=== PATIENT | female | born 1980 | race Caucasian/White ===

== ENCOUNTER 2016-08-21 11:18 | Day surgery (SDC) | payer MEDICARE, OTHER ==
[2016-08-19 11:52] LABS: WBC (NOT ORDERED) (RFLEX) 0 (0-5)
[2016-08-19 12:24] LABS: BUN (BLOOD UREA NITROGEN) 21 MG/DL (6-23); CALCIUM, SERUM 8.4 MG/DL (8.5-10.4); CHLORIDE, SERUM 105 MMOL/L (96-112); CO2 (CARBON DIOXIDE) 29 MMOL/L (24-34); CREATININE 1.13 MG/DL (0.55-1.02); GFR AFRICAN AMERICAN 73 ML/MIN (>=60); GFR NON AFRICAN AMERICAN 63 ML/MIN (>=60); GLUCOSE, SERUM 78 MG/DL (60-99); POTASSIUM, SERUM 4.4 MMOL/L (3.5-5.3); SODIUM, SERUM 143 MMOL/L (135-148)
[2016-08-19 14:10] LABS: ASCORBIC ACID (UR NOT ORDER) NEG (NEG); BILIRUBIN, URINE NEGATIVE (NEG); KETONE, URINE NEGATIVE (NEG); LEUKOCYTE ESTERASE(NOT OR NEG (NEG)
--- NOTE | ~2016-08-21 | CN ---
Consultation Report [facility] [address] [place]. [address] NAME: MYNOR BOURGEOIS : 84 STATUS : [facility] PAT#: [id number] AGE: 36 ADM/REG DATE : 08/21/16 MR#: [id number] REPORT SERV DATE: 08/21/16 DICTATED BY: SURINDER CLAIRE DATE: 08/21/16 REPORT STATUS : Draft TRANSCRIBED BY: MODL DATE: 08/21/16 DATE OF CONSULTATION: 08/21/2016 REASON FOR CONSULT: Unable to arouse. CHIEF COMPLAINT: I am here to have the procedure by Dr. Nation. HISTORY OF PRESENT ILLNESS: A 36-year-old white female with a history of type 1 diabetes on Levemir and Novolin along with hypertension, benzodiazepine use, presented today for an elective procedure by Dr. Nation for a cystoscopy with bilateral ureteroscopy and possible stone manipulation. I was called to the bedside by Dr. Nation as the patient was a difficult to arouse even by Anesthesia. The patient had apparently walked into the hospital for this elective procedure, was doing fine and then at some point in time was hypersomnolent. A serum tox screen was obtained. The only time Anesthesia was able to arouse the patient was after placing an IJ. The patient's vitals were unremarkable. When I had walked by her room, she had her arms behind her head. No seizure activity, but there is obvious snoring. After deep sternal manipulation, the patient was arousable and was able to give me a decent history. She states that she had been up for the past couple of days, nervous about the procedure, and did not get much sleep. However, according to the medical staff, she may have taken an extra dose or two of benzodiazepine. The patient denies any chest pain or shortness of breath. Denies any seizure activity, but does say she has had a questionable seizure in December, but not on any seizure medications at home. REVIEW OF SYSTEMS: As per HPI. Otherwise, 10-point systems are reviewed and are negative. PAST MEDICAL HISTORY: Type 1 diabetes, currently on insulin; hypertension; questionable seizures; hematuria; may be some possible schizophrenia; ADHD; and anxiety disorder. PAST SURGICAL HISTORY: Appendectomy, cholecystectomy, three C sections, partial nephrectomy with persistent hematuria, hysterectomy, stents in both kidneys, tonsillectomy. SOCIAL HISTORY: History of smoking. Possible illegal drug use. She was incarcerated at some point for seven years for assaulting a prostitute. 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 FAMILY HISTORY: Positive for coronary artery disease and hypertension. MEDICATIONS: Include amlodipine, carvedilol, Klonopin, gabapentin, insulin, Levemir insulin, Novolin R, lisinopril, Latuda, and Percocet p.r.n. PHYSICAL EXAMINATION: VITAL SIGNS: Within normal limits. GENERAL: The patient is cooperative. She is alert and orient x3 after waking up from a deep sternal rub. She remains awake and able to provide a good history now. Generally, she is Consultation Report [address] [place]. [address] NAME: MYNOR BOURGEOIS : 84 STATUS : [facility] PAT#: [id number] AGE: 36 ADM/REG DATE : 08/21/16 MR#: [id number] REPORT SERV DATE: 08/21/16 DICTATED BY: SURINDER CLAIRE DATE: 08/21/16 REPORT STATUS : Draft TRANSCRIBED BY: JOSE DATE: 08/21/16 no acute distress. Alert and oriented x3. Very pleasant. HEENT: Normocephalic and atraumatic head. Poor dentition. CARDIAC: Regular rhythm. No murmurs, rubs, or gallops. PULMONARY: Clear to auscultation bilaterally. ABDOMEN: Soft, nontender, nondistended. Positive bowel sounds. EXTREMITIES: No clubbing, cyanosis, or edema. SKIN: Warm and dry. There are several tattoos. PSYCHIATRIC: The patient is cooperative. Mood is appropriate. NEURO: No focal deficits. LABS: Show an unremarkable BMP except for a creatinine of 1.13. UA is unremarkable. Glucose is 244. Serum drug screen is negative for toxicology. IMPRESSION: 1. Hypersomnolence, likely secondary to over medication, possibly from benzodiazepine versus lack of sleep, now resolved. 2. Insulin-dependent diabetes. 3. Chronic benzodiazepine use. 4. Attention deficit hyperactivity disorder. PLAN: Agree with Dr. Nation to hold off surgery until the patient is more compliant with medications. No need for inpatient hospitalization. Okay to be discharged from the Hospital Service from the preop area. WING/JOSE Surinder Claire MD / [id number] CC: MD YUVAL Lay ANGELA LOUISE
[~2016-08-21 11:18] MED LIST: ADDERALL30 MG PO; COREGCR10 PO; INSNOVR SC; KLONO1 PO; LATUDA40 MG PO; LEVEMFLXPN SC; NEUR600 PO; NORV5 PO; PCET PO; PRIN20 PO; XANAX1 MG PO; ZOCOR20 PO
[2016-08-21 14:01] LABS: ACETAMINOPHEN LEVEL (TYLENOL) < 2.0 MCG/ML (10.0-20.0); ALCOHOL < 10 MG/DL (0); SALICYLATE < 1.7 MG/DL (-)
== END 2016-08-21 23:59 | disposition home health service (06) ==
LOC: SDC 11:18
PROVIDERS: Urology
DX: E10.9 Type 1 diabetes mellitus without complications (principal); I10 Essential (primary) hypertension; F90.9 Attention-deficit hyperactivity disorder, unspecified type; F41.9 Anxiety disorder, unspecified; F17.200 Nicotine dependence, unspecified, uncomplicated; F19.90 Other psychoactive substance use, unspecified, uncomplicated; Z53.8 Procedure and treatment not carried out for other reasons; Z82.49 Family history of ischemic heart disease and other diseases of the circulatory system; Z90.49 Acquired absence of other specified parts of digestive tract; Z90.5 Acquired absence of kidney; Z90.710 Acquired absence of both cervix and uterus; Z90.89 Acquired absence of other organs; Z98.890 Other specified postprocedural states; Z79.4 Long term (current) use of insulin
CPT/HCPCS: 80048; 80307; 81001; 82962; 93005; J0690; Q9967

== ENCOUNTER 2016-09-02 07:09 | Day surgery (SDC) | payer MEDICARE, OTHER ==
--- NOTE | ~2016-09-02 | OP ---
Record Of Operation [facility] [address] [place]. [address] NAME: MYNOR BOURGEOIS : 84 STATUS : [facility]#: [id number] AGE: 36 ADM/REG DATE : 09/02/16 MR#: [id number] REPORT SERV DATE: 09/02/16 DICTATED BY: SINDY NATION DATE: 09/02/16 REPORT STATUS : Draft TRANSCRIBED BY: MODL DATE: 09/02/16 DATE OF PROCEDURE: 09/02/2016 ATTENDING PHYSICIAN: Sindy Nation M.D. TITLE OF OPERATIONS: Cystourethroscopy, bilateral retrograde pyelograms, bilateral ureteroscopy with laser lithotripsy, and removal of foreign body from right kidney. PREOPERATIVE DIAGNOSIS: Bilateral renal stones. POSTOPERATIVE DIAGNOSIS: Bilateral renal stones. Foreign body in right kidney. INDICATIONS: Ms. Bourgeois is a 36-year-old female with bilateral renal stones. She had a partial nephrectomy for apparent benign disease in the right side. She has bilateral flank pain. She is here for treatment. ANESTHESIA: General. COMPLICATIONS: None. IMPLANTS: Bilateral 6 x 24 ureteral stents with tethers. SPECIMENS: Calcified foreign body from the right kidney. NARRATIVE: The patient was brought to the operating room, identified by her wristband. General anesthesia was induced and Ancef was given for preoperative antibiotics. She was placed in the dorsal lithotomy position, prepped and draped in a sterile fashion. A cystoscope was placed into her urethra and into her bladder. The bladder was inspected. There was no tumors or abnormalities found. The left ureteral orifice was identified and cannulated with a Sensor wire. Retrograde pyelogram was shot which showed a nondilated collecting system. A flexible ureteroscope was placed over the wire into the kidney. The kidney was inspected. There were approximately 5 stones adherent to the renal parenchyma. These were lasered free from their attachments into sub micron pieces. All pieces were too small to grasp with a grasper. They will pass spontaneously. The scope was removed. The ureter was inspected and found to be normal. A Sensor wire was placed back up to the level of the kidney. A 6 x 24 ureteral stent was placed in standard fashion. The proximal coil was in the renal pelvis. Distal coil was in the bladder. A tether was left. Next attention was turned to the right side. A 5-Welsh open-ended catheter was placed into the distal right ureter and a retrograde pyelogram was shot which showed normal kidney and ureter. A flexible ureteroscope was placed over the wire into the kidney. The kidney was inspected. Several small stones were seen adherent to the renal parenchyma. There is also a circular structure consistent with a calcified stitch. Using a 200 micron holmium laser fiber, these stones were lasered free from their attachments and then fragmented into multiple small pieces. With the circular body, the calcifications were lasered free and there was a dark appearing stitch. This was fragmented into several small pieces. A Sensor wire was then placed back up into the kidney. A ureteral access sheath was placed over the Record Of Operation [address] [address] NAME: MYNOR BOURGEOIS : 84 STATUS : [facility]#: [id number] AGE: 36 ADM/REG DATE : 09/02/16 MR#: [id number] REPORT SERV DATE: 09/02/16 DICTATED BY: SINDY NATION DATE: 09/02/16 REPORT STATUS : Draft TRANSCRIBED BY: MODL DATE: 09/02/16 wire into the proximal ureter. Then using a ureteroscopic grasper, the calcified foreign body was removed sequentially and sent to pathology for analysis. At the end of the case, there was no sizable calcified fragments left in the kidney. A Sensor wire was then placed back up to the level of the kidney and a 6 x 24 ureteral stent was placed in standard fashion. The proximal coil was in the upper pole under fluoroscopic guidance. Distal coil was in the bladder and under direct vision, a tether was left. The bladder was drained. The patient was awoken from anesthesia and transferred to the recovery room in stable condition. I will see her back on for stent removal. JENY/JOSE Sindy Nation MD / [id number] CC: MD TRAE Lay
== END 2016-09-02 13:46 | disposition home or self-care (01) ==
LOC: SDC 07:09
PROVIDERS: Urology
PROC: 0TF38ZZ Fragmentation in Right Kidney Pelvis, Via Natural or Artificial Opening Endoscopic (ICD-10-PCS; 2016-09-02)
PROC: 0T768DZ Dilation of Right Ureter with Intraluminal Device, Via Natural or Artificial Opening Endoscopic (ICD-10-PCS; 2016-09-02)
PROC: 0TF48ZZ Fragmentation in Left Kidney Pelvis, Via Natural or Artificial Opening Endoscopic (ICD-10-PCS; principal; 2016-09-02 09:00)
DX: N20.0 Calculus of kidney (principal); T19.8XXA Foreign body in other parts of genitourinary tract, initial encounter; I25.2 Old myocardial infarction; R56.9 Unspecified convulsions; E78.00 Pure hypercholesterolemia, unspecified; F41.9 Anxiety disorder, unspecified; N18.9 Chronic kidney disease, unspecified; E11.22 Type 2 diabetes mellitus with diabetic chronic kidney disease; I12.9 Hypertensive chronic kidney disease with stage 1 through stage 4 chronic kidney disease, or unspecified chronic kidney disease; F17.200 Nicotine dependence, unspecified, uncomplicated; Z88.5 Allergy status to narcotic agent; Z91.040 Latex allergy status; Z90.710 Acquired absence of both cervix and uterus; Z98.890 Other specified postprocedural states; Z90.49 Acquired absence of other specified parts of digestive tract; F32.9 Major depressive disorder, single episode, unspecified; F90.9 Attention-deficit hyperactivity disorder, unspecified type
CPT/HCPCS: 74420; 82947; 82962; 88300; A9270-GY; C1758; C2617; J0330; J0690; J0735; J1170; J2250; J2370; J2405; J3010; Q9967